=== PATIENT | female | born 1985 | race Caucasian/White ===

== ENCOUNTER 2020-08-22 15:31 | Outpatient (CLI) | payer OTHER, SELFPAY ==
--- NOTE | ~2020-08-22 | MM_ITS ---
EXAMINATION: MM screening henry BI w smith HISTORY: Screening mammogram TECHNIQUE: Craniocaudal and mediolateral oblique 3-D tomosynthesis images were obtained and synthetic 2-D images were generated. CAD analysis was submitted and interpreted. COMPARISON: No prior mammogram is available for comparison at this institution. BREAST PARENCHYMAL COMPOSITION: There are scattered areas of fibroglandular density. FINDINGS: There is no evidence of suspicious mass, calcification, or architectural distortion to sugg est malignancy in either breast. There has been no suspicious interval change. IMPRESSION: 1. No mammographic evidence of malignancy. 2. Recommend routine screening mammography in one year. BI-RADS Category 1: Negative Reviewed, dictated and finalized at location B.
== END 2020-08-22 15:32 | disposition home or self-care (01) ==
PROVIDERS: Visit Provider Surgery Plastic and Reconstructive Surgery
DX: Z12.31 Encounter for screening mammogram for malignant neoplasm of breast (principal)
CPT/HCPCS: 77063; 77067

== ENCOUNTER → 2020-11-06 00:15 | Outpatient (CLI) | payer OTHER, SELFPAY ==
[2020-11-06 21:52] LABS: SARS-CoV-2 RNA PCR Negative
== END ==
PROVIDERS: Visit Provider Surgery Plastic and Reconstructive Surgery
DX: Z01.812 Encounter for preprocedural laboratory examination (principal); Z20.822 Contact with and (suspected) exposure to COVID-19
CPT/HCPCS: C9803; U0003; U0005

== ENCOUNTER 2020-11-09 01:20 | Day surgery (SDC) | payer OTHER, SELFPAY ==
[2020-10-26 13:49] VITALS: BMI 23.4
--- NOTE | 2020-11-08 08:56 | WPDANESEPPF ---
Anes - Initial Pre Proc Eval Procedure: Operation Date: 11/09/20 07:30 Proposed Procedures p Bilateral Breast Augmentation, - Kevin Ruiz MD s Bilateral Breast Mastopexy With Galaflex - Kevin Ruiz MD Date/Time: 11/08/20 08:56 Surgeon: Kevin Ruiz MD Pre Op Diagnosis: micromastia, breast ptosis Patient Data Age: 35 Gender: F Height: 1.75 m Weight: 72.12 kg Allergies Allergy/AdvReac Type Severity Reaction Status Date / Time No Known Allergies Allergy Verified 11/09/20 06:26 Home Medications Medication Instructions Recorded Confirmed Type carisoprodol 350 mg tablet 350 mg PO TID PRN #21 tablet 10/25/20 11/09/20 Rx docusate sodium 100 mg capsule 100 mg PO DAILY #14 cap 10/25/20 11/09/20 Rx ondansetron HCl 4 mg tablet 4 mg PO Q8H #21 tablet 10/25/20 11/09/20 Rx oxycodone-acetaminophen 5 mg-325 1 tablet PO Q6H PRN #15 tablet 10/25/20 11/09/20 Rx mg tablet Patient hx anesthesia problems: none Family hx anesthesia problems: none [facility] Past Medical History Medical History (Updated 11/08/20 @ 08:57 by Kj Puckett MD) Anxiety Social History Social History Smoking status: Never smoker Second hand tobacco smoke exposure: No Alcohol intake: current Alcohol use details: social drinker; on occasion Substance use: never Substance use type: does not use Living arrangements: with family Spiritual care concerns: No Anes - Eval Final PreProcedure Day of Procedure 11/08/20 08:56 Patient weight: overweight Heart: regular rate and rhythm Lungs: clear to auscultation and normal air movement Airway: Mallampati scale class II Neurological: alert and oriented Last oral intake: >/= 8 hours ASA classification: II Emergent: no Anesthetic plan: proceed Anesthesia type and monitoring: general LMA Informed Consent: The patient's anesthetic plan and its attendant risks and benefits were discussed with the patient/family/POA. Questions were solicited and answers provided to the satisfaction of the patient/family/POA.
[2020-11-09] VITALS (10 sets, daily range): BP systolic 110–126; BP diastolic 64–78; PULSE 53–72; RESP 10–18; TEMP 36.2–36.4; O2SAT 96–100
[2020-11-09] MEDS: LACTATED RINGERS 1,000 ML 30 ML IV CONT ×2 (06:23→10:08)
[2020-11-09 06:26] LABS: Urine Cotinine NEGATIVE
--- NOTE | 2020-11-09 06:54 | WPDHPUPDATE1 ---
History and Physical Update Update Date/Time: 11/09/20 06:54 History and Physical has been reviewed, including an updated exam of the patient. There are NO changes in the patient's condition. Risks, benefits, and alternatives have been discussed and questions answered. Patient agrees to proceed with procedure.
[2020-11-09] MEDS: LACTATED RINGERS 500 ML 999 ML IV CONT (07:00)
[2020-11-09] MEDS: SCOPOLAMINE 1.5 MG PATCH TRANSDERM (07:13)
--- NOTE | 2020-11-09 07:21 | P.OP_ITS ---
Procedure Note - Detailed Date of Procedure 11/09/20 Pre-op Diagnosis micromastia, breast ptosis Post-op Diagnosis same Procedure Performed Bilateral augmentation mastopexy with galaflex Surgeon Kevin Ruiz MD Anesthesia general Findings Inverted T Superior pedicle Bilateral Kristopher Rahman Soft Touch 405cc Right - REF# [id number] SN [id number] Left - REF# [id number] SN [id number] Galaflex REF# [id number] Lot# [id number] Description of Procedure She is here today for bilateral breast augmentation mastopexy with galaflex. Previously and again today the risks, benefits, alternatives were discussed in extensive detail. I wanted her to be very realistic about the risks involved as well as expectations. We discussed aftercare and what to monitor for. Made sure answered all of her questions to her satisfaction today and consent was obtained. Marked in the preoperative holding area with their verification. The patient was taken to the operating room placed supine on the operating table. Anesthesia was provided by anesthesiology. A surgical time-out was taken. We cleansed the skin and 1% lidocaine and 0.25% Marcaine with epinephrine was used anesthetize as a field block. She was prepped and draped in a standard sterile fashion. Tegaderm nipple Romano were placed. A 15 blade used to make an incision just superior to the inframammary fold. Dissection was continued at 45 degree angle until the chest wall as identified. I incised the pectoralis major along its inferior border and completely released the inferior border leaving the medial border intact. I created a subpectoral pocket in the appropriate dimensions based on our preoperative planning for the implant. I then copiously irrigated with saline solution and verified a strict hemostasis. Next the use a triple antibiotic and Betadine containing solution to irrigate the pocket. I washed my gloves with the triple antibiotic and Betadine solution. We washed the implant immediately upon opening it with this solution and only opened it when we needed it. I used implant funnel and no-touch technique. The implant was introduced into the pocket using the funnel. Having verified positioning of the implant this was closed using 2-0 Vicryl. I tailor tacked the breast into position. Placed her in a sitting position. Verified my markings and marked out the nipple-areolar complex at 38 mm. This is based on preoperative markings as well as intraoperative observations and measurements which were in full agreement. She was placed supine. I de- epithelialized the superior pedicle. Resected just what was necessary of the central keel to remove the gravity dependent portion of tissue. I elevated thick medial and lateral flaps which were well vascularized. I then trimmed gout flexes necessary sutured into place with 2-0 Vicryl. I closed using 2-0 PDS along vertical pillars as well as IMF. This was followed by 3-0 Monocryl along the vertical / periareolar and strata fix along the IMF. Final closure was running subcuticular 4-0 Monocryl and tissue glue. Fluffs and surgical bra were placed. Patient was awoke and taken to PACU without difficulty. All instrument sponge counts were correct at the end of the case. Estimated Blood Loss 30 Drains No Packing No Pathology none sent Complications No immediate complications Condition stable Disposition PACU
[2020-11-09] MEDS: ceFAZolin 2 GM/D5W 50 ML 2 GM/50 ML BAG IVPB (07:24)
[2020-11-09] MEDS: TRANEXAMIC ACID 1,000MG/ISO100 1,000 MG/100 ML BAG 200 MG IVPB (07:37)
[2020-11-09] MEDS: LIDO 1%/EPINEPHRINE 1:100,000 50 ML VIAL 30 ML INFILTRATE (08:08)
[2020-11-09] MEDS: fentaNYL CITRATE INJ (*CRX) 100 MCG/2 ML VIAL 25 MCG IV PUSH ×2 (10:23→10:30)
[2020-11-09] MEDS: ONDANSETRON INJ 4 MG/2 ML VIAL IV PUSH (10:47)
[2020-11-09] MEDS: oxyCODONE HCL (*CRX) 5 MG TAB IR PO (11:19)
== END 2020-11-09 11:35 | disposition home or self-care (01) ==
PROVIDERS: Visit Provider Surgery Plastic and Reconstructive Surgery
PROC: (CPT 19325; principal; 2020-11-09 07:30)
PROC: (CPT 19316; 2020-11-09 07:30)
DX: Z41.1 Encounter for cosmetic surgery (principal); N64.82 Hypoplasia of breast; N64.81 Ptosis of breast; F41.9 Anxiety disorder, unspecified; Z79.899 Other long term (current) drug therapy
CPT/HCPCS: 19325; 19316; 15777 ×2; 80307; A9270; J0690; J1100; J1580; J2250; J2405; J2704; J3010; J7120

== ENCOUNTER 2022-04-18 00:42 | Day surgery (SDC) | payer OTHER, SELFPAY ==
[2022-04-10 15:19] VITALS: BMI 24.0
--- NOTE | 2022-04-10 15:23 | SUR.PREOP ---
Report to the Outpatient Waiting Room, entrance under the green pavilion located off [facility], at time _0830 on date _04/18/22 . Planned Procedure Time: _1030 . Time changes happen often and if your time is changed the preop area will call you the afternoon before. - You and your visitor will be asked to self-screen and do not enter if you have any COVID symptoms. - We encourage only one visitor and NO visitors under age 16 are allowed at this time. Your visitor will receive communication by the phone number that is given day of service. - The patient visitor is requested to social distance or may leave the building when not with patient due to restrictions. - A mask is required within the hospital. Patients may have clear liquids (water, carbonated beverages, clear teas, apple juice) until 3 hours prior to surgery with a maximum of 20 ounces. - No food from midnight until time of surgery - Infants may have breast milk until 4 hours before surgery, formula 6 hours prior to surgery. - Children will be allowed to drink immediately following surgery. If applicable, please bring a bottle or sippy cup to assist with drinking. Juice, water, soda, and popsicles are readily available. For infants on formula, please bring formula the day of surgery. Pacifiers are allowed. Take the following medications with a SIP of water the morning of surgery: n/a Medications to discontinue per physician n/a Date to take last dose____n/a Please no make-up, nail nepalese, hairspray, perfume, deodorant, or body powder the day of surgery. No jewelry (including any body piercings) or valuables the day of surgery, leave them at home. Please take a shower or bath the night before, or the morning of, surgery with an antibacterial soap. Wear comfortable, loose fitting clothing. Children are encouraged to wear pajamas. - Jewelry must be removed prior to entering the operating room. Rings and piercings that are not removed may be cut off. - The hospital will not accept responsibility for valuables. - Please leave all valuables, including medications, at home the day of surgery. If you are going home after surgery, a licensed speedboat driver must drive you home. - NO public transportation without another adult. - We recommend that an adult stay with you for 24 hours following discharge. - We also recommend that you do not drive, make important decision, drink alcoholic beverages, or take any drugs that were not prescribed by your health care provider for at least 24 hours after your discharge time. For Pediatric surgeries, we recommend two adults accompany the child home. Follow any additional instructions given to you from your surgeon. If you or anyone in your household have experienced Covid symptoms in the past week, please notify your surgeon or the nurse liaison at the phone number below for possible testing. Telephone instructions given to _rashida velazco and asked if any additional questions and then verbalized understanding. Patient advised to call surgeon office or pre surgery nurse liaison [phone] if any additional questions.
--- NOTE | 2022-04-17 14:43 | P.PNAN_ITS ---
Anes - Initial Pre Proc Eval Procedure: Operation Date: 04/18/22 10:30 Proposed Procedures p Abdominoplasty with Liposuction - Kevin Ruiz MD Date/Time: 04/17/22 14:43 Surgeon: Kevin Ruiz MD Pre Op Diagnosis: skin laxity Patient Data Age: 36 Gender: F Height: 1.77 m Weight: 75 kg Allergies Allergy/AdvReac Type Severity Reaction Status Date / Time No Known Allergies Allergy Verified 04/10/22 15:07 Home Medications Medication Instructions Recorded Confirmed Type No Home Medications 05/16/21 04/10/22 History Patient hx anesthesia problems: none Family hx anesthesia problems: none Results Review: All pre-operative results and documents have been reviewed as part of the pre- operative evaluation. [facility] Past Medical History Medical History Anxiety Social History Social History Smoking status: Never smoker Second hand tobacco smoke exposure: No Alcohol intake: current Alcohol use details: 4 drinks a month Substance use: never Substance use type: does not use Living arrangements: with family Spiritual care concerns: No Anes - Eval Final PreProcedure Day of Procedure 04/17/22 14:43 Patient weight: normal Heart: regular rate and rhythm Lungs: clear to auscultation and normal air movement Airway: Mallampati scale class II Neurological: alert and oriented Last oral intake: >/= 8 hours ASA classification: II Emergent: no Anesthetic plan: proceed Anesthesia type and monitoring: general LMA Results Review: All pre-operative results and documents have been reviewed as part of the pre- operative evaluation. Informed Consent: The patient's anesthetic plan and its attendant risks and benefits were discussed with the patient/family/POA. Questions were solicited and answers provided to the satisfaction of the patient/family/POA.
[2022-04-18] VITALS (11 sets, daily range): BP systolic 111–125; BP diastolic 55–65; PULSE 51–92; RESP 13–19; TEMP 36.5–36.8; O2SAT 96–100
[2022-04-18 09:09] LABS: Urine Cotinine NEGATIVE
[2022-04-18] MEDS: LACTATED RINGERS 1,000 ML 30 ML IV CONT ×2 (09:22→14:05)
[2022-04-18] MEDS: SCOPOLAMINE 1.5 MG PATCH TRANSDERM (09:23)
--- NOTE | 2022-04-18 09:46 | W.PM.PROC2 ---
Procedure Note - Detailed Date of Procedure 04/18/22 Pre-op Diagnosis skin laxity Post-op Diagnosis Same Procedure Performed Progressive tension abdominoplasty with suction lipectomy Surgeon Kevin Ruiz MD Anesthesia General Findings Tissue removed - 1386 grams Lipoaspirate - 2350 cc Description of Procedure They are here today for abdominoplasty. Previously and again today the risks, benefits, alternatives were discussed in extensive detail. I wanted them to be very realistic about the risks involved as well as expectations. We discussed aftercare and what to monitor for. I was very upfront about the risks of wound breakdown leading to loss of skin, open wounds, and need for additional procedures with permanent abdominal deformity. We discussed DVT/PE risks and management. Made sure answered all of their questions to their satisfaction today and consent was obtained. They were marked in the preoperative holding area with their verification. The patient was taken to the operating room placed supine on the operating table. Anesthesia was provided by anesthesiology. A Deal catheter was started. They were prepped and draped in a standard sterile fashion. A surgical time-out was taken. I placed the patient in a flexed position to verify the upper and lower markings would reach. I then placed supine. A thorough abdominal examination was completed. Stab incisions were made and tumescent solution infiltrated. Once adequate time was allowed for hemostasis a 5mm basket cannula was utilized to complete suction lipectomy based on S.A.F.E. technique in multiple planes and passes. She was turned to bilateral lateral decubitus position with care taken to protect them for injury during this process. Suction lipectomy continued to result based on pre-operative planning, intra-operative observation, and rolling pinch test which were in full agreement. A 10 blade was used to make the upper incision. I continued dissection down to the level of fascia. Elevated just what was necessary for repair of the diastasis. I then again flexed the bed to verify the upper skin flap would reach the lower markings without tension. Once verified I placed her supine once again and a 10 blade used to make the lower incision. I elevated up to level the umbilicus and left the umbilicus intact on a well-vascularized stalk. The intervening tissue was removed. A 2 mm blunt cannula with 0.5% bupivicaine was injected deep to the fascia bilaterally. I plicated the diastasis recti using 0 PDO stratafix barbed suture. This was in 2 separate layers using 2 separate sutures as well. I repaired around the umbilicus leaving plenty of room for well-vascularized stalk of the umbilicus with 2-0 PDS. I also repaired lateral to the rectus using two layers of 0 PDO stratafix. The patient was flexed and starting from superior to inferior began plication using 2-0 Vicryl to obliterate all space in a standard progressive tension fashion. At the umbilicus I marked out the location of the skin and inset this with 3-0 Monocryl and 4-0 Vicryl. I continued the remainder of the plication using 2-0 Vicryl until I reached my lower planned scar line. I trimmed any excess skin of the upper flap making sure this was a tension-free closure. I then approximated using a 3 point suture with 2-0 Vicryl followed by 3-0 stratafix ,running subcuticular 4-0 Monocryl, and tissue glue. Fluffs and an abdominal binder were placed. The patient was transferred to the bed in a flexed position. Awoken and taken to the PACU without difficulty. All instrument and sponge counts were correct at the end of the case. Estimated Blood Loss 75 Drains No Packing No Pathology None sent Complications No immediate complications Condition Stable Disposition PACU
--- NOTE | 2022-04-18 09:58 | WPDHPUPDATE1 ---
History and Physical Update Update Date/Time: 04/18/22 09:58 History and Physical has been reviewed, including an updated exam of the patient. There are NO changes in the patient's condition. Risks, benefits, and alternatives have been discussed and questions answered. Patient agrees to proceed with procedure.
[2022-04-18] MEDS: ceFAZolin 2 GM/D5W 50 ML 2 GM/50 ML BAG IVPB (10:05)
[2022-04-18] MEDS: TRANEXAMIC ACID 1,000MG/ISO100 1,000 MG/100 ML BAG 200 MG IVPB (10:23)
[2022-04-18] MEDS: BUPIVACAINE/EPINEPHRINE 0.25% 50 ML VIAL 60 ML INFILTRATE (12:27)
--- NOTE | 2022-04-18 12:29 | SUR.OPER ---
RIGHT LATERAL [phone], LEFT LATERAL [phone]
[2022-04-18] MEDS: LACTATED RINGERS IRRIG 1,000 ML, LIDOCAINE HCL 1% LOCAL INJ 50 ML, EPINEPHrine HCL INJ ... INFILTRATE (13:15)
--- NOTE | 2022-04-18 15:52 | ADMGEN ---
This patient, Natalie Covington, was admitted to OB 2nd Floor Room 292-00. Patient/family oriented to hospital policies and general routines including ID bracelet, bed and alarms, visiting hours, pain management, procedures, bathroom and other care routines, personal items, smoking policy, room service/diet, and visiting hours. Information on how to activate the Rapid Response Team has been discussed. Patient/Family are encouraged to report perceived risks to care and to ask questions if they do not understand what they are told or what they should do.
[2022-04-18] MEDS: LACTATED RINGERS 1,000 ML 125 ML IV CONT (16:21)
[2022-04-18] MEDS: KETOROLAC 15 MG/ML VIAL (*BKC) IV PUSH (16:49)
[2022-04-18] MEDS: carisoprodoL (*CRX) 350 MG TABLET PO (17:34)
[2022-04-18] MEDS: GABAPENTIN 300 MG CAPSULE PO (17:34)
[2022-04-18] MEDS: ENOXAPARIN 40 MG/0.4 ML SYRINGE SUB-Q (20:13)
[2022-04-18] MEDS: oxyCODONE/ACETAMINOPHEN (*CRX) 5-325 MG TABLET PO (20:14)
[2022-04-18] MEDS: DOCUSATE SODIUM 100 MG CAPSULE PO (20:14)
[2022-04-18] MEDS: ONDANSETRON INJ 4 MG/2 ML VIAL IV PUSH (21:53)
[2022-04-19] VITALS: BP 90/49; PULSE 66; RESP 20; TEMP 37.1
[2022-04-19] MEDS: KETOROLAC 15 MG/ML VIAL (*BKC) IV PUSH ×3 (02:50→14:48)
[2022-04-19 04:05] VITALS: BP 100/53; PULSE 62; RESP 18; TEMP 36.3
--- NOTE | 2022-04-19 07:18 | WPDPN ---
Progress Note: A&P Assessment and Plan (1) Encounter for cosmetic surgery: Code(s): Z41.1 - Encounter for cosmetic surgery Status: Acute Assessment and Plan: She is doing very well today after progressive tension abdominoplasty with suction lipectomy. Will plan for discharge once pain controlled, ambulating, tolerating diet, urination. F/U in 1 week. Today we had done extensive conversation about the care. What monitor for. Activity limitations. This was a lengthy open-ended conversation making sure answered all of her questions. We discussed what is an emergency and went to proceed to the ER/ dial 911. She understands we are available for all their questions at any time. I will see her back. Subjective Date/time seen: 04/19/22 07:18 Interval history: She is doing very well after progressive tension abdominoplasty with suction lipectomy. Overnight pain controlled. No fevers or chills. No nausea or vomiting. No shortness of breath. No chest pain. No calf tenderness. When getting up she did get a little bit lightheaded however this quickly resolved while sitting again. Catheter is out. She has not urinated yet. Review of Systems Review of Systems: All systems reviewed & are unremarkable except as noted in HPI and below Exam Narrative: Alert oriented no obvious distress Respiratory is unlabored Abdomen soft. No signs of infection. No seroma. Just to the right of midline above her lower scar there is a small area of fullness with mild discoloration worrisome for a possible small hematoma. We discussed options including risks, benefits, alternatives and after consent was obtained this area was prepped sterilely. I used an 18 gauge needle on a syringe to attempt to aspirate hematoma. No aspirate was returned. She tolerated well. No calf tenderness. Negative Homans. Objective Data Vital Signs Vital Signs: Vital Signs - 24 hr 04/18/22 08:51 04/18/22 13:58 04/18/22 14:13 Temperature 36.8 C 36.5 C Pulse Rate 52 L 70 92 Respiratory Rate 18 14 19 Blood Pressure 125/65 120/60 112/62 Pulse Oximetry 100 100 100 Oxygen Delivery Room Air Simple Face Mask Simple Face Mask Oxygen Flow Rate 6 6 04/18/22 14:25 04/18/22 14:40 04/18/22 14:55 Temperature Pulse Rate 73 63 57 L Respiratory Rate 13 13 16 Blood Pressure 117/60 121/65 124/61 Pulse Oximetry 97 100 97 Oxygen Delivery Room Air Room Air Room Air Oxygen Flow Rate 04/18/22 15:10 04/18/22 15:25 04/18/22 15:40 Temperature Pulse Rate 51 L 59 L 61 Respiratory Rate 15 19 16 Blood Pressure 116/62 114/63 124/65 Pulse Oximetry 98 98 96 Oxygen Delivery Room Air Room Air Room Air Oxygen Flow Rate 04/18/22 16:00 04/18/22 16:00 04/18/22 20:00 Temperature 36.7 C Pulse Rate 54 L 72 Respiratory Rate 16 18 Blood Pressure 111/60 111/55 L Pulse Oximetry 100 Oxygen Delivery Room Air Oxygen Flow Rate 04/19/22 00:00 04/19/22 04:05 Temperature 37.1 C 36.3 C L Pulse Rate 66 62 Respiratory Rate 20 18 Blood Pressure 90/49 L 100/53 L Pulse Oximetry Oxygen Delivery Oxygen Flow Rate Intake/Output Intake/Output: Intake & Output 04/16/22 04/17/22 04/18/22 04/19/22 23:59 23:59 23:59 23:59 Intake Total 2980 400 Output Total 1740 575 Balance 1240 -175 Meds/Results Medications: Active Medications Generic Name Dose Route Start Last Admin Trade Name Freq PRN Reason Stop Dose Admin Carisoprodol 350 mg 04/18/22 18:00 04/19/22 00:00 Carisoprodol (*Crx) 350 Mg Tablet PO 350 mg Q6HR ELHAM Administration Diazepam 5 mg 04/18/22 13:41 Diazepam (*Crx) 5 Mg Tablet PO TID PRN Anxiety Docusate Sodium 100 mg 04/18/22 21:00 04/18/22 20:14 Docusate Sodium 100 Mg Capsule PO 100 mg Q12HR ELHAM Administration Enoxaparin Sodium 40 mg 04/18/22 21:00 04/18/22 20:13 Enoxaparin 40 Mg/0.4 Ml Syringe SUB-Q 40 mg HS ELHAM Administration Gabapentin 300 mg
--- NOTE | 2022-04-19 07:24 | P.DS_ITS ---
DS: Admitting Diagnosis Discharge Date 04/19/2022 Admitting Diagnosis Encounter cosmetic surgery DS: Discharge Diagnosis Discharge Diagnosis (1) Encounter for cosmetic surgery: Code(s): Z41.1 - Encounter for cosmetic surgery Status: Acute Assessment and Plan: Doing well after progressive tension abdominoplasty with suction lipectomy. Will discharge home. DS: Summary Hospital Course Hospital Course: She is doing very well after progressive tension abdominoplasty with suction lipectomy. Tolerated diet, pain controlled, ambulating. Will discharge home later today. Time Spent with Patient Time attestation: Total time spent providing and/or coordinating discharge services: Exam Narrative: Alert oriented no obvious distress Respiratory is unlabored Abdomen soft. No signs of infection. No seroma. Just to the right of midline above her lower scar there is a small area of fullness with mild discoloration worrisome for a possible small hematoma. We discussed options including risks, benefits, alternatives and after consent was obtained this area was prepped sterilely. I used an 18 gauge needle on a syringe to attempt to aspirate hematoma. No aspirate was returned. She tolerated well. No calf tenderness. Negative Homans. DS: Data Data Completed and Pending Labs on day of discharge: Labs from last 24 hours 04/18/22 08:50 Cotinine Negative Discharge Plan Discharge Patient Disposition: Home, Self-Care Discharge Instructions: POST OPERATIVE DISCHARGE INSTRUCTIONS KEVIN RUIZ M.D. [facility] [facility] [address] [place] [address] * No driving for 24 hours after anesthesia and while you are taking pain medication. * Take all prescribed medication as directed * Diet as tolerated. * No lifting or activity that raises blood pressure for 48 hours. * Regular walking / ambulation. * May shower 24 hours after surgery. Once you shower do not take pain medication before showering as the combination of medication and heat may cause you to feel dizzy or pass out. * No pools or tubs for 2 weeks. * Slowly stand up straight as tolerated. * No straining or lifting more than 20 pounds. * If no bowel movement within 24 hours may use laxative. * Call with any questions or concerns. * Dressing Care: Continue abdominal binder / foam 23 hours per day. If you have any questions or concerns, please call the office . If it is after hours you will be directed to the irrigation pump installer exchange. Shortness of breath, chest pain, or other medical emergency dial 911 / proceed to the Emergency Room. Stand Alone Forms: General Discharge Instructions Follow-up/Referrals: Kevin Ruiz MD [Physician] - 1 Week Discharge Medications: No Action No Home Medications
--- NOTE | 2022-04-19 07:49 | WPDANESPN ---
Anes - Prog Note Post-Op Date/Time: 04/19/22 07:49 Cardiovascular status: normal Respiratory status: normal Airway patency: baseline Mental status: baseline Post-Op hydration status: normal Vital Signs: Last Vital Signs Temp 36.3 C L 04/19/22 04:05 Pulse 62 04/19/22 04:05 Resp 18 04/19/22 04:05 BP 100/53 L 04/19/22 04:05 Pulse Ox 100 04/18/22 16:00 O2 Del Method Room Air 04/18/22 16:00 O2 Flow Rate 6 04/18/22 14:13 Pain Score (VAS): 07/12 I/O: Intake & Output 04/18/22 04/18/22 04/19/22 15:59 23:59 07:59 Intake Total 1050 1930 400 Output Total 90 1650 575 Balance 960 280 -175 04/18/22 08:50 Cotinine Negative Post-procedural complaints: none Patient Feedback: Patient satisfied with anesthetic care.
[2022-04-19 08:00] VITALS: PULSE 58; RESP 18; O2SAT 97
[2022-04-19 08:30] VITALS: BP 90/51; PULSE 58; RESP 18; TEMP 37.4; O2SAT 97
[2022-04-19] MEDS: DOCUSATE SODIUM 100 MG CAPSULE PO (09:35)
[2022-04-19] MEDS: carisoprodoL (*CRX) 350 MG TABLET PO ×3 (09:35→14:48)
[2022-04-19] MEDS: GABAPENTIN 300 MG CAPSULE PO ×2 (09:48→14:48)
[2022-04-19] MEDS: ONDANSETRON INJ 4 MG/2 ML VIAL IV PUSH (14:51)
== END 2022-04-19 15:10 | disposition home or self-care (01) ==
LOC: ANHSURGERY 09:48 → ANHOB2 16:14
PROVIDERS: Visit Provider Surgery Plastic and Reconstructive Surgery
PROC: (CPT 15830; principal; 2022-04-18 10:30)
DX: Z41.1 Encounter for cosmetic surgery (principal); L57.4 Cutis laxa senilis
CPT/HCPCS: 15830; 15847; 15877; 80307; 99199; A9270; J0171; J0330; J0690; J1100; J1170; J1650; J1885; J2250; J2370; J2405; J2704; J2710; J3010; J7120